=== PATIENT | female | born 1940 | race Native Hawaiian/Other Pacific Islander ===

== ENCOUNTER 2016-07-25 13:46 | Outpatient (CLI) | payer OTHER ==
[~2016-07-25 13:46] MED LIST: ALPR0.2566 PO; ASA LO-DOSE81 MG OR; CHLOSUS43 PO; CIPRO500 MG PO; CRESTOR20 MG PO; DIOVAN HCT160 MG/25 PO; FISH OIL1000 M1 OR; FLUT0.05 NAS; JENTADUETO1 TA1 OR; JENTADUETO1 TA1 PO; LEVAQUIN500 MG OR; LEVO0.0529; LEVO0.0529 PO; MACROBID100 MG OR; MEDROL DOSEPAK4 MG OR; MULTIVITAMIN OR; NEXIUM40 M1 OR; TRADJENTA5 MG OR; [UNRECOGNIZED DRUG - OTHER] PO
[2016-07-25 14:16] LABS: POTASSIUM 4.1 mmol/L (3.6-5.2); SODIUM 138 mmol/L (136-145)
[2016-07-25 14:19] LABS: PLATELET COUNT 228 K/uL (152-353)
== END 2016-07-25 14:50 | disposition home or self-care (01) ==
LOC: LAB 13:46
PROVIDERS: Nurse Practitioner Family
DX: E11.9 Type 2 diabetes mellitus without complications (principal); I10 Essential (primary) hypertension; E55.9 Vitamin D deficiency, unspecified
CPT/HCPCS: 80053; 80061; 82306; 82607; 83036; 84439; 84443; 85027

== ENCOUNTER 2016-08-06 10:08 | Outpatient (CLI) | payer OTHER | END 2016-08-06 11:15 | disposition home or self-care (01) | LOC: RAD 10:08 | DX: I10 Essential (primary) hypertension (principal); Z78.0 Asymptomatic menopausal state ==

== ENCOUNTER 2016-10-23 14:13 | Outpatient (CLI) | payer OTHER ==
[2016-10-23 14:35] LABS: PLATELET COUNT 239 K/uL (152-353)
[2016-10-23 14:59] LABS: POTASSIUM 3.8 mmol/L (3.6-5.2); SODIUM 138 mmol/L (136-145)
== END 2016-10-23 19:33 | disposition home or self-care (01) ==
LOC: LAB 14:13
PROVIDERS: Nurse Practitioner Family
DX: I10 Essential (primary) hypertension (principal); E11.9 Type 2 diabetes mellitus without complications; F41.8 Other specified anxiety disorders; E55.9 Vitamin D deficiency, unspecified; Z79.899 Other long term (current) drug therapy; Z51.81 Encounter for therapeutic drug level monitoring
CPT/HCPCS: 80053; 80061; 82306; 83036; 84436; 84443; 85027

== ENCOUNTER 2017-01-28 13:54 | Outpatient (CLI) | payer OTHER ==
[2017-01-28 14:24] LABS: PLATELET COUNT 230 K/uL (152-353)
[2017-01-28 14:46] LABS: SODIUM 136 mmol/L (136-145)
== END 2017-01-28 14:55 | disposition home or self-care (01) ==
LOC: LAB 13:54
PROVIDERS: Nurse Practitioner Family
DX: I10 Essential (primary) hypertension (principal); E11.9 Type 2 diabetes mellitus without complications; F41.8 Other specified anxiety disorders; Z79.899 Other long term (current) drug therapy; Z51.81 Encounter for therapeutic drug level monitoring
CPT/HCPCS: 80053; 80061; 83036; 84436; 84443; 85027

== ENCOUNTER 2017-04-29 13:51 | Outpatient (CLI) | payer OTHER ==
[2017-04-29 14:50] LABS: PLATELET COUNT 232 K/uL (152-353)
[2017-04-29 15:31] LABS: POTASSIUM 3.8 mmol/L (3.6-5.2)
== END 2017-04-29 19:21 | disposition home or self-care (01) ==
LOC: LAB 13:51
PROVIDERS: Nurse Practitioner Family
DX: E11.9 Type 2 diabetes mellitus without complications (principal); I10 Essential (primary) hypertension; F41.8 Other specified anxiety disorders; Z79.899 Other long term (current) drug therapy; Z51.81 Encounter for therapeutic drug level monitoring
CPT/HCPCS: 80053; 80061; 83036; 84436; 84443; 85027

== ENCOUNTER 2017-05-18 14:06 | Outpatient (CLI) | payer OTHER ==
[2017-05-18] MEDS ORDERED: CELEXA10 MG PO (14:33)
[2017-05-18] MEDS ORDERED: SYSTANE BAL OP (14:34)
[2017-05-18] MEDS ORDERED: OMEPRAZOLE40 MG PO (14:34)
[2017-05-18] MEDS ORDERED: VITAMIN D5000 UNIT PO (14:35)
[2017-05-18] MEDS ORDERED: VICTOZA18 MG/3 ML SC (14:38)
== END 2017-05-18 14:11 | disposition short-term general hospital (02) ==
LOC: AMB 14:06
DX: R10.84 Generalized abdominal pain (principal); R11.2 Nausea with vomiting, unspecified
CPT/HCPCS: A0425; A0427

== ENCOUNTER 2017-05-18 14:28 | Inpatient (IN) | payer OTHER ==
[~2017-05-18] VITALS: Ht 152.4 cm; Wt 61.4 kg
[2017-05-18 14:20] VITALS: BP 83/60; TEMP 98
[2017-05-18] MEDS ORDERED: CELEXA10 MG PO (14:33)
[2017-05-18] MEDS ORDERED: OMEPRAZOLE40 MG PO (14:34)
[2017-05-18] MEDS ORDERED: SYSTANE BAL OP (14:34)
[2017-05-18] MEDS ORDERED: VITAMIN D5000 UNIT PO (14:35)
[2017-05-18] MEDS ORDERED: VICTOZA18 MG/3 ML SC (14:38)
[2017-05-18 14:51] LABS: PLATELET COUNT 356 K/uL (152-353)
[2017-05-18 14:59] LABS: POTASSIUM 3.5 mmol/L (3.6-5.2)
[2017-05-18 15:15] VITALS: BP 113/66
[2017-05-18 17:20] VITALS: BP 90/72
[2017-05-18 18:18] VITALS: BP 136/68
[2017-05-18 22:13] VITALS: BP 133/64; TEMP 98.5; Ht 152.4 cm; Wt 61.4 kg
[2017-05-19] VITALS: BP 100/42; TEMP 99.1
[2017-05-19 04:19] VITALS: BP 107/57; TEMP 98.7
[2017-05-19 06:42] LABS: PLATELET COUNT 231 K/uL (152-353)
[2017-05-19 06:47] LABS: POTASSIUM 3.5 mmol/L (3.6-5.2)
[2017-05-19 07:29] VITALS: BP 128/67; TEMP 98.1
[2017-05-19 12:00] VITALS: BP 145/72; TEMP 98.8
[2017-05-19 16:00] VITALS: BP 135/70; TEMP 97.8
[2017-05-19 20:00] VITALS: BP 123/69; TEMP 99.1
[2017-05-20] VITALS (7 sets, daily range): BP systolic 118–165; BP diastolic 58–75; TEMP 97.8–99.1
[2017-05-20 06:30] LABS: PLATELET COUNT 202 K/uL (152-353)
[2017-05-20 06:45] LABS: POTASSIUM 2.9 mmol/L (3.6-5.2)
[2017-05-21 04:00] VITALS: BP 127/66; TEMP 98.4
[2017-05-21 06:48] LABS: PLATELET COUNT 211 K/uL (152-353)
[2017-05-21 07:22] LABS: POTASSIUM 3.6 mmol/L (3.6-5.2)
[2017-05-21 08:00] VITALS: BP 151/74; TEMP 97.8
[2017-05-21 12:00] VITALS: BP 146/75; TEMP 98
[2017-05-21 16:00] VITALS: BP 133/68; TEMP 98.3
[2017-05-21 20:00] VITALS: BP 161/70; TEMP 98.8
[2017-05-22] VITALS: BP 141/63; TEMP 98.1
[2017-05-22 04:00] VITALS: BP 131/54; TEMP 98.3
[2017-05-22 05:39] LABS: PLATELET COUNT 222 K/uL (152-353)
[2017-05-22 05:49] LABS: POTASSIUM 3.8 mmol/L (3.6-5.2)
[2017-05-22 08:05] VITALS: BP 145/74; TEMP 98.1
[2017-05-22 11:26] VITALS: BP 182/71; TEMP 97.8
[2017-05-22 16:00] VITALS: BP 151/61; TEMP 98
[2017-05-22 20:00] VITALS: BP 188/92; TEMP 97.5
[2017-05-23] VITALS: BP 155/75; TEMP 98.2
[2017-05-23 04:00] VITALS: BP 144/77; TEMP 98.2
[2017-05-23 05:38] LABS: PLATELET COUNT 239 K/uL (152-353)
[2017-05-23 06:07] LABS: POTASSIUM 3.8 mmol/L (3.6-5.2)
[2017-05-23 08:00] VITALS: BP 148/69; TEMP 97.8
[2017-05-23 12:00] VITALS: BP 109/67; TEMP 97.7
[2017-05-23 16:00] VITALS: BP 132/76; TEMP 98.1
[2017-05-23 20:00] VITALS: BP 189/74; TEMP 97.7
[2017-05-24] VITALS: BP 131/65; TEMP 98.1
[2017-05-24 04:00] VITALS: BP 132/68; TEMP 97.9
[2017-05-24 06:53] LABS: PLATELET COUNT 223 K/uL (152-353)
[2017-05-24 07:10] LABS: POTASSIUM 4.2 mmol/L (3.6-5.2)
[2017-05-24 08:14] VITALS: BP 147/76; TEMP 97.6
[2017-05-24] MEDS ORDERED: INSU100I2 SC (10:14)
[2017-05-24] MEDS ORDERED: METR250T19 PO ×2 (10:14)
[2017-05-24] MEDS ORDERED: CIPRO250 MG PO (10:14)
[2017-05-24] MEDS ORDERED: FLUC150T PO (10:14)
== END 2017-05-24 12:00 | disposition home or self-care (01) | DRG 392 ==
LOC: ED 14:28 → MED/SURG 20:18
DX: K52.89 Other specified noninfective gastroenteritis and colitis (principal); N39.0 Urinary tract infection, site not specified; R11.2 Nausea with vomiting, unspecified; R19.7 Diarrhea, unspecified; E86.0 Dehydration; R10.32 Left lower quadrant pain; I10 Essential (primary) hypertension; D64.89 Other specified anemias; E83.51 Hypocalcemia; E87.6 Hypokalemia; E11.9 Type 2 diabetes mellitus without complications; B95.2 Enterococcus as the cause of diseases classified elsewhere
CPT/HCPCS: 36415; 80053; 81000; 82150; 82272; 82948; 83036; 83605; 83690; 83735; 85027; 87015; 87045; 87077; 87086; 87088; 87185; 87186; 87205; 87324; 87328; 87329; 87449; 87899; 96360; 96361; 96365; 96366; 96367; 96372; 96374; 96375; 99284; J0744; J1170; J1815; J1885; J2405; J2550; J3475; J3490; Q9963

== ENCOUNTER 2017-09-02 14:47 | Outpatient (CLI) | payer OTHER ==
[~2017-09-02 14:47] MED LIST changes: +CELEXA10 MG PO; +CIPRO250 MG PO; +FLUC150T PO; +INSU100I2 SC; +METR250T19 PO; +OMEPRAZOLE40 MG PO; +SYSTANE BAL OP; +VICTOZA18 MG/3 ML SC; +VITAMIN D5000 UNIT PO
[2017-09-02 15:19] LABS: PLATELET COUNT 193 K/uL (152-353)
[2017-09-02 16:02] LABS: POTASSIUM 3.7 mmol/L (3.6-5.2)
== END 2017-09-02 22:45 | disposition home or self-care (01) ==
LOC: LAB 14:47
PROVIDERS: Nurse Practitioner Family
DX: E11.9 Type 2 diabetes mellitus without complications (principal); I10 Essential (primary) hypertension; F41.8 Other specified anxiety disorders; Z79.899 Other long term (current) drug therapy; Z51.81 Encounter for therapeutic drug level monitoring
CPT/HCPCS: 80053; 80061; 83036; 84436; 84443; 85027

== ENCOUNTER 2017-11-29 07:53 | Outpatient (CLI) | payer OTHER ==
[2017-11-29 08:21] LABS: PLATELET COUNT 189 K/uL (152-353)
[2017-11-29 09:27] LABS: POTASSIUM 3.7 mmol/L (3.6-5.2)
== END 2017-11-29 19:34 | disposition home or self-care (01) ==
LOC: LABW 07:53
PROVIDERS: Internal Medicine
DX: E11.9 Type 2 diabetes mellitus without complications (principal); Z71.3 Dietary counseling and surveillance; Z76.89 Persons encountering health services in other specified circumstances; I10 Essential (primary) hypertension; E03.9 Hypothyroidism, unspecified; I65.23 Occlusion and stenosis of bilateral carotid arteries; K21.9 Gastro-esophageal reflux disease without esophagitis; N39.0 Urinary tract infection, site not specified; E78.2 Mixed hyperlipidemia; K57.30 Diverticulosis of large intestine without perforation or abscess without bleeding; Z87.19 Personal history of other diseases of the digestive system; R71.8 Other abnormality of red blood cells
CPT/HCPCS: 36415; 80053; 80061; 82306; 82550; 82728; 83540; 83550; 84443; 84466; 85027; 85651; 86140

== ENCOUNTER 2018-02-13 13:03 | Outpatient (CLI) | payer OTHER | END 2018-02-13 19:43 | disposition home or self-care (01) | LOC: LABW 13:03 | DX: R30.0 Dysuria (principal) | CPT/HCPCS: 81000; 87077; 87086; 87088; 87186 ==

== ENCOUNTER 2018-03-03 08:20 | Outpatient (CLI) | payer OTHER ==
[2018-03-03 08:40] LABS: PLATELET COUNT 190 K/uL (152-353)
[2018-03-03 08:55] LABS: POTASSIUM 3.6 mmol/L (3.6-5.2)
== END 2018-03-03 19:01 | disposition home or self-care (01) ==
LOC: LABW 08:20
PROVIDERS: Nurse Practitioner Family
DX: E11.9 Type 2 diabetes mellitus without complications (principal); E03.9 Hypothyroidism, unspecified; I10 Essential (primary) hypertension; E78.2 Mixed hyperlipidemia; Z87.19 Personal history of other diseases of the digestive system; R71.8 Other abnormality of red blood cells; E55.9 Vitamin D deficiency, unspecified
CPT/HCPCS: 36415; 80053; 85027

== ENCOUNTER 2018-09-09 15:49 | Emergency (ER) | payer OTHER ==
[~2018-09-09] VITALS: Ht 165.1 cm; Wt 62.6 kg
[2018-09-09] MEDS ORDERED: HUMALOG KW100 UNIT/M SC (16:43)
[2018-09-09] MEDS ORDERED: HYZAAR1 TA1 PO (16:43)
[2018-09-09] MEDS ORDERED: PANTOPRAZOLE 40MG TA PO (16:44)
[2018-09-09] MEDS ORDERED: ASPIRIN 81 LOW81 MG PO (16:44)
[2018-09-09] MEDS ORDERED: ALPR0.5T24 PO (16:45)
[2018-09-09] MEDS ORDERED: REFRES2 OPTH (16:45)
[2018-09-09] MEDS ORDERED: MIRALAX3350 N1 PO (16:46)
[2018-09-09] MEDS ORDERED: LINZESS145 MCG PO (16:47)
[2018-09-09] MEDS ORDERED: TYLENOL325 MG PO (16:47)
[2018-09-09] MEDS ORDERED: ONDANSETRON4 M2 PO (16:47)
[2018-09-09 18:01] LABS: PLATELET COUNT 230 K/uL (152-353)
[2018-09-09 18:09] LABS: POTASSIUM 3.7 mmol/L (3.6-5.2)
[2018-09-09 23:35] VITALS: BP 146/74; TEMP 98.2
== END 2018-09-09 23:35 | disposition home or self-care (01) ==
LOC: ED 15:49
PROVIDERS: Family Medicine
DX: K59.09 Other constipation (principal); R10.84 Generalized abdominal pain
CPT/HCPCS: 80053; 81000; 85027; 96372; 96374; 96375; 99284; J1885; J2405; J2550

== ENCOUNTER 2018-10-06 07:50 | Outpatient (CLI) | payer OTHER ==
[~2018-10-06 07:50] MED LIST changes: +ALPR0.5T24 PO; +ASPIRIN 81 LOW81 MG PO; +HUMALOG KW100 UNIT/M SC; +HYZAAR1 TA1 PO; +LINZESS145 MCG PO; +MIRALAX3350 N1 PO; +ONDANSETRON4 M2 PO; +PANTOPRAZOLE 40MG TA PO; +REFRES2 OPTH; +TYLENOL325 MG PO
[2018-10-06 08:13] LABS: PLATELET COUNT 184 K/uL (152-353)
== END 2018-10-06 21:38 | disposition home or self-care (01) ==
LOC: LABW 07:50
PROVIDERS: Nurse Practitioner Family
DX: E11.9 Type 2 diabetes mellitus without complications (principal); E03.8 Other specified hypothyroidism; I10 Essential (primary) hypertension; E78.2 Mixed hyperlipidemia; Z87.19 Personal history of other diseases of the digestive system; R71.8 Other abnormality of red blood cells
CPT/HCPCS: 36415; 80053; 80061; 81000; 82728; 83540; 83550; 84443; 85027

== ENCOUNTER 2018-11-21 10:51 | Outpatient (CLI) | payer OTHER | END 2018-11-21 22:17 | disposition home or self-care (01) | LOC: RAD 10:51 | DX: M89.8X8 Other specified disorders of bone, other site (principal); N95.8 Other specified menopausal and perimenopausal disorders ==

== ENCOUNTER 2019-05-08 08:22 | Outpatient (CLI) | payer OTHER ==
[2019-05-08 08:51] LABS: PLATELET COUNT 179 K/uL (152-353)
[2019-05-08 09:08] LABS: POTASSIUM 3.6 mmol/L (3.6-5.2)
== END 2019-05-08 19:28 | disposition home or self-care (01) ==
LOC: LABW 08:22
PROVIDERS: Nurse Practitioner Family
DX: E11.9 Type 2 diabetes mellitus without complications (principal); E03.8 Other specified hypothyroidism; K58.1 Irritable bowel syndrome with constipation; I10 Essential (primary) hypertension; E78.2 Mixed hyperlipidemia; R71.8 Other abnormality of red blood cells; E55.9 Vitamin D deficiency, unspecified
CPT/HCPCS: 36415; 80053; 80061; 81000; 82306; 84443; 85027

== ENCOUNTER 2019-08-05 08:30 | Outpatient (CLI) | payer OTHER ==
[2019-08-05 09:14] LABS: POTASSIUM 4.3 mmol/L (3.6-5.2)
[2019-08-05 10:01] LABS: PLATELET COUNT 177 K/uL (152-353)
== END 2019-08-05 22:20 | disposition home or self-care (01) ==
LOC: LABW 08:30
PROVIDERS: Internal Medicine
DX: E11.9 Type 2 diabetes mellitus without complications (principal); E66.3 Overweight; Z78.0 Asymptomatic menopausal state; E78.2 Mixed hyperlipidemia; E03.4 Atrophy of thyroid (acquired); I10 Essential (primary) hypertension
CPT/HCPCS: 36415; 80053; 80061; 82043; 82248; 82570; 84439; 84443; 85027

== ENCOUNTER 2019-11-03 08:24 | Outpatient (CLI) | payer OTHER ==
[2019-11-03 09:17] LABS: POTASSIUM 3.9 mmol/L (3.6-5.2)
[2019-11-03 09:44] LABS: PLATELET COUNT 189 K/uL (152-353)
== END 2019-11-03 19:38 | disposition home or self-care (01) ==
LOC: LABW 08:24
PROVIDERS: Internal Medicine
DX: Z00.00 Encounter for general adult medical examination without abnormal findings (principal); I10 Essential (primary) hypertension; E11.9 Type 2 diabetes mellitus without complications; Z79.4 Long term (current) use of insulin; E03.8 Other specified hypothyroidism; K21.9 Gastro-esophageal reflux disease without esophagitis; E78.2 Mixed hyperlipidemia; E55.9 Vitamin D deficiency, unspecified; F41.8 Other specified anxiety disorders; H90.3 Sensorineural hearing loss, bilateral; K59.01 Slow transit constipation; R71.8 Other abnormality of red blood cells; Z71.3 Dietary counseling and surveillance
CPT/HCPCS: 36415; 80053; 80061; 81000; 82306; 84443; 85027

== ENCOUNTER 2021-08-30 08:32 | Outpatient (CLI) | payer OTHER ==
[2021-08-30 09:25] LABS: POTASSIUM 4.4 mmol/L (3.6-5.2)
[2021-08-30 09:57] LABS: PLATELET COUNT 169 K/uL (152-353)
== END 2021-08-30 19:11 | disposition home or self-care (01) ==
LOC: LABW 08:32
PROVIDERS: ATTEND Internal Medicine
DX: E11.9 Type 2 diabetes mellitus without complications (principal); Z79.4 Long term (current) use of insulin; E03.4 Atrophy of thyroid (acquired); I10 Essential (primary) hypertension; E78.2 Mixed hyperlipidemia; E66.9 Obesity, unspecified; Z78.0 Asymptomatic menopausal state
CPT/HCPCS: 36415; 80053; 80061; 82043; 82248; 82570; 84439; 84443; 85027